=== PATIENT | male | born 1970 | race Two or more races ===

== ENCOUNTER 2020-03-09 13:43 | Emergency (ER) | payer MEDICAID ==
[~2020-03-09] VITALS: Ht 170.2 cm; Wt 77.6 kg
[2020-03-09 13:55] VITALS: BP 145/81
--- NOTE | 2020-03-09 13:55 | NUR ---
[email or web address], from a restaurant, lac on nose area s/p tripped and fall,-ko. has 5 cans of beer. vs checked,. awaiting md dasilva
--- NOTE | 2020-03-09 15:37 | NUR ---
Patient eloped from facility. ER MD notified.
== END 2020-03-09 15:37 | disposition left against medical advice (07) ==
LOC: ER 13:50
DX: S01.21XA Laceration without foreign body of nose, initial encounter (principal); W01.0XXA Fall on same level from slipping, tripping and stumbling without subsequent striking against object, initial encounter; Y93.89 Activity, other specified; Y92.511 Restaurant or cafe as the place of occurrence of the external cause; Y99.8 Other external cause status

== ENCOUNTER 2020-06-03 12:48 | Inpatient (IN) | payer MEDICAID ==
[~2020-06-03] VITALS: Ht 162.6 cm; Wt 59.4 kg
--- NOTE | 2020-06-03 15:25 | NUR ---
RN OPENING NOTES DIRECT ADMIT FROM [facility]. PT AWAKE, A/O X4. ON ROOM AIR SATING 99%. REPORTS PAIN AT LEFT SHOULDER 10/10. MULTIPLE BRUISES NOTED ON CHEST AND SHOULDERS. PICTURE TAKEN AND PLACED IN CHART. IV ACCESS AT RAC #20 INTACT, PATENT AND FLUSHED. BELONGING LIST SIGNED. REFUSED TO CHANGE INTO HOSPITAL GOWN. SAFETY MEASURES IN PLACE. CALL LIGHT WITHIN REACH. BED LOCKED AND ATLOWEST POSITION. BED ALARM ON. WILL CONTINUE TO MONITOR.
[2020-06-03 16:00] VITALS: BP 120/72
[2020-06-03] MEDS ORDERED: MAG HYDROX/AL HYDROX/SIMETH 30 ML UDC PO PRN (16:30)
[2020-06-03] MEDS ORDERED: Z GUARD REMEDY 2 OZ OINT TP PRN (16:30)
[2020-06-03] MEDS ORDERED: MAGNESIUM HYDROXIDE 30 ML UDC PO PRN (16:30)
[2020-06-03] MEDS ORDERED: ONDANSETRON HCL/PF 4 MG/2 ML VIAL IVP PRN (16:30)
[2020-06-03] MEDS ORDERED: MVI ADULT 10ML VIAL = 1AMP 10 ML in IV NS 0.9% 1,000 ML IV ONE (16:30)
[2020-06-03] MEDS ORDERED: IV NS 0.9% 1,000 ML IV SCH (16:30)
[2020-06-03] MEDS ORDERED: MVI-12 10ML IV ONE (16:30)
[2020-06-03] MEDS: IV NS 0.9% 1,000 ML IV PRN (16:35)
[2020-06-03 16:50] LABS: BASOPHILS # (AUTO) 0.1 /CMM (0.0-0.2); BASOPHILS % (AUTO) 1.5 % (0.0-2.0); EOSINOPHILS % (AUTO) 0.1 % (0.0-6.0); HEMATOCRIT 27 % (39-51); HEMOGLOBIN 9.2 g/dL (13.5-17.5); MEAN CORPUSCULAR HGB CONC 34 g/dl (31.0-36.0); MEAN CORPUSCULAR VOLUME 94 fL (80-96); MONOCYTES % (AUTO) 13.6 % (2.0-12.0); NEUTROPHILS % (AUTO) 70.8 % (43.0-81.0); PLATELET COUNT (AUTO) 56 /CMM (150-450); RED BLOOD CELL COUNT(AUTO) 2.91 MIL/uL (4.5-6.0)
[2020-06-03] MEDS: Folic acid 1 MG in IV D5W 50 ML IV SCH (16:57)
[2020-06-03] MEDS: MORPHINE SULFATE INJ 2 MG/ML DISP.SYRIN IV PRN ×2 (17:07→20:20)
[2020-06-03 17:11] LABS: CALCIUM, SERUM 8.4 mg/dL (8.5-10.1); CREATININE 0.5 mg/dL (0.6-1.3); POTASSIUM 3.7 mmol/L (3.5-5.1)
[2020-06-03 17:12] LABS: MAGNESIUM 2.1 mg/dL (1.8-2.4); PHOSPHORUS 2.3 mg/dL (2.5-4.9)
[2020-06-03 17:32] LABS: LYMPHOCYTES % (MANUAL) 12 % (16-48); MONOCYTES % (MANUAL) 16 % (0-11.0); NEUTROPHILS % (MANUAL) 72 (42-76)
[2020-06-03] MEDS: Thiamine 100 MG in IV D5W 50 ML IV SCH (17:45)
--- NOTE | 2020-06-03 19:29 | NUR ---
RN CLOSING NOTES PT RESTING IN BED. ALL NEEDS ATTENDED. DUE MEDS GIVEN. SAFETY MEASURES STILL IN PLACE. WILL ENDORSE TO NIGHT NURSE FOR CRYSTAL.
[2020-06-03 20:00] VITALS: BP 114/76
[2020-06-03] MEDS: LORAZEPAM INJ 2 MG/ML VIAL IV PRN (20:21)
[2020-06-03] MEDS: HYDROCODONE/APAP 5/325MG TABLET PO PRN (21:34)
[2020-06-03] MEDS: CHLORDIAZEPOXIDE HCL 25 MG CAPSULE PO SCH (22:53)
[2020-06-03] MEDS: ZOLPIDEM TARTRATE 5 MG TABLET PO PRN (23:12)
[2020-06-04] VITALS: BP 130/52
[2020-06-04] MEDS: LORAZEPAM INJ 2 MG/ML VIAL IV PRN ×5 (02:44→19:57)
[2020-06-04] MEDS: ACETAMINOPHEN 325 MG TABLET PO PRN ×2 (02:45→19:58)
[2020-06-04 04:00] VITALS: BP 126/70
[2020-06-04] MEDS: CHLORDIAZEPOXIDE HCL 25 MG CAPSULE PO SCH ×3 (05:43→20:04)
[2020-06-04] MEDS: IV NS 0.9% 1,000 ML IV PRN ×2 (05:48→21:13)
[2020-06-04] MEDS: MORPHINE SULFATE INJ 2 MG/ML DISP.SYRIN IV PRN ×3 (06:16→19:57)
[2020-06-04 06:55] LABS: BASOPHILS # (AUTO) 0.1 /CMM (0.0-0.2); BASOPHILS % (AUTO) 0.7 % (0.0-2.0); EOSINOPHILS % (AUTO) 1.3 % (0.0-6.0); HEMATOCRIT 25 % (39-51); HEMOGLOBIN 8.7 g/dL (13.5-17.5); LYMPHOCYTES # (AUTO) 1.3 /CMM (0.8-4.8); LYMPHOCYTES % (AUTO) 15.7 % (20.0-44.0); MEAN CORPUSCULAR HGB CONC 34 g/dl (31.0-36.0); MEAN CORPUSCULAR VOLUME 94 fL (80-96); MONOCYTES # (AUTO) 1.2 /CMM (0.1-1.30); MONOCYTES % (AUTO) 14.4 % (2.0-12.0); NEUTROPHILS # (AUTO) 5.6 /CMM (1.8-8.9); NEUTROPHILS % (AUTO) 67.9 % (43.0-81.0); PLATELET COUNT (AUTO) 56 /CMM (150-450); RED BLOOD CELL COUNT(AUTO) 2.71 MIL/uL (4.5-6.0); WHITE BLOOD COUNT (AUTO) 8.2 K/uL (4.3-11.0)
[2020-06-04 07:06] LABS: CALCIUM, SERUM 8.3 mg/dL (8.5-10.1); CREATININE 0.4 mg/dL (0.6-1.3); POTASSIUM 3.3 mmol/L (3.5-5.1)
--- NOTE | 2020-06-04 07:30 | NUR ---
RN OPENING NOTES PATIENT PRESENT IN BED, AGITATED, ON ROOM, AIR, SPO2 IS 98%, NO SOB NOTED R AC IV LINE NOTED, INTACT AND FLUSHED,, SLING ON LEFT HAND NOTED, A/OX4, NSR ON TELE-MONITOR, SAFETY MEASURES IN PLACE, BED ALARM ON, WILL CONT TO MONITOR
[2020-06-04] MEDS ORDERED: MVI ADULT 10ML VIAL = 1AMP 10 ML in IV NS 0.9% 1,000 ML IV PRN (09:00)
--- NOTE | 2020-06-04 09:00 | NUR ---
Agitated, saying that she want go home, saying his daughter (17yo) at home alone, then said he has at home too, tried to contact by [facility] number listed on face shift, incorrect number provided. Hospitalist notifyed, availing for her visit, meanwhile will provide with ordered medication amd monitor closely
[2020-06-04] MEDS ORDERED: POTASSIUM CHLORIDE 20 MEQ TAB.PRT.SR PO SCH (09:30)
[2020-06-04 11:30] VITALS: BP 120/43
[2020-06-04 12:00] VITALS: BP 137/70
--- NOTE | 2020-06-04 13:00 | NUR ---
PATIENT SHAKING AND UNABLE TO WALK STRAIGHT ,GUIDED BACK TO BED,EXPLAINED THAT HE ALMOST FALL AND NOT SAFE FOR NOW TO AMBULATE BY HIMSELF.WILL CONTINUE TO MONITOR.FALL RISK PRECAUTION OBSERVED.
--- NOTE | 2020-06-04 13:41 | NUR ---
SS NOTE: SS consult requested. SW spoke to ELY Antonio and was told that the patient is currently confused and withdrawing from alcohol use. ARNULFO will follow up with the patient tomorrow for a consult.
--- NOTE | 2020-06-04 13:52 | NUR ---
PATIENT SHAKING AND RESTLESS,TRYING TO GET OUT OF BED ,UNSTEADY GAIT,AND HAD DOSE ALREADY OF PRN MD SHAHNAZ MADE AWARE AND ORDERED SITTER,NURSING SUP MADE AWARE.
--- NOTE | 2020-06-04 13:54 | NUR ---
CLOSE TO STATION ,ALTERNATE WATCH BY RN/HERD TESTER /CHRGE NURSE,WILL CONTINUE TO MONITOR.
--- NOTE | 2020-06-04 14:16 | NUR ---
SITTER AT BEDSIDE.
[2020-06-04 16:00] VITALS: BP 140/63
[2020-06-04] MEDS: Folic acid 1 MG in IV D5W 50 ML IV SCH (16:48)
[2020-06-04] MEDS: Thiamine 100 MG in IV D5W 50 ML IV SCH (18:03)
[2020-06-04 20:00] VITALS: BP 136/88
[2020-06-04] MEDS: ZOLPIDEM TARTRATE 5 MG TABLET PO PRN (21:17)
[2020-06-04] MEDS: HYDROCODONE/APAP 5/325MG TABLET PO PRN (21:17)
[2020-06-05] VITALS: BP 129/72
[2020-06-05 04:00] VITALS: BP 127/76
[2020-06-05] MEDS: CHLORDIAZEPOXIDE HCL 25 MG CAPSULE PO SCH ×3 (05:10→20:22)
[2020-06-05 06:11] LABS: CALCIUM, SERUM 8.5 mg/dL (8.5-10.1); CREATININE 0.5 mg/dL (0.6-1.3)
[2020-06-05] MEDS: MORPHINE SULFATE INJ 2 MG/ML DISP.SYRIN IV PRN ×3 (06:27→20:18)
[2020-06-05] MEDS: LORAZEPAM INJ 2 MG/ML VIAL IV PRN ×3 (06:28→16:08)
[2020-06-05] MEDS: IV NS 0.9% 1,000 ML IV PRN ×2 (06:51→20:27)
--- NOTE | 2020-06-05 07:30 | NUR ---
RN OPENING NOTE PT ASLEEP IN BED, AROUSABLE TO NAME, A/Ox4, BREATHING ON RA SP2 98%, NO SIGNS OF RESP DISTRESS OR SOB. PT HAS VISIBLE TREMORS, WILL ADMIN ATIVAN ACCORDINGLY. PT STATES 8/10 PAIN IN LEFT SHOULDER/ARM THAT IS FRACTURED, SLING IS ON, WILL ADMIN PAIN MEDS ACCORDINGLY. PT HAS MULTIPLE BRUISES OVER HIS BODY FROM FALL. PT CAN STAND BUT IS FULL ASSIST AND VERY WEAK BLE. PT HAS RAC #20 INFUSING NS @ 100ML/HR, LINE FLUSHED, PATENT WITH NO SIGNS OF INFECTION OR INFILTRATION. PHOTOCOPIER TECHNICIAN SAM NOTIFIED OF POTASSIUM OF 3.0 AND PLT OF 56. ALL PT SAFETY PRECAUTIONS IN PLACE WILL CONT TO MONITOR
[2020-06-05 08:00] VITALS: BP 130/77
[2020-06-05] MEDS: FOLIC ACID 1 MG TABLET PO SCH (08:59)
[2020-06-05] MEDS: THIAMINE HCL 100 MG TABLET PO SCH (08:59)
[2020-06-05] MEDS ORDERED: POTASSIUM CHLORIDE 20 MEQ TAB.PRT.SR PO ONE (09:00)
[2020-06-05] MEDS: MULTIVITAMINS,THERAGRAN 1 UDTAB TABLET PO SCH (10:23)
[2020-06-05 12:00] VITALS: BP 134/80
--- NOTE | 2020-06-05 13:30 | NUR ---
RN NOTE PT 100.3 LOW GRADE FEVER. TYLENOL 650MG AND COOLING MEASURES GIVEN. WILL REASSESS
--- NOTE | 2020-06-05 15:20 | NUR ---
Broadcast Checker Consult: Broadcast Checker consult was requested due to alcohol intoxication and pt wanting to leave AMA. Pt is a 49 year old male who was admitted to [facility] on 06/03/20 due to fall resulting in humeral fracture while he was intoxicated. Upon face to face evaluation, pt appears to be alert and oriented x4 (time, place, self and situation). 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 Pts mood appears to be euthymic and pt presents with an anxious affect. Pt denies suicidal and homicidal ideation as well as auditory and visual hallucinations. Pt states that he has been eating and sleeping appropriately. Pt also states that he is ambulatory and has been receiving physical therapy. Pt states that he would like to be discharged to his home as soon as possible. Plan: ARNULFO provided the pt with substance abuse referrals and placed a copy in the chart. Pt will return home at the time of discharge.
[2020-06-05 16:00] VITALS: BP 123/71
--- NOTE | 2020-06-05 19:00 | NUR ---
RN CLOSING NOTE NO CHANGES TO PT STATUS. WHILE PT IS A/Ox3, CONSTANT TEACHING REINFORCEMENT NEEDED THROUGHOUT SHIFT REGARDING PT CARE PLAN AND WHAT THE PROVIDER WANTS TO SEE PRIOR TO DISCHARGE. PT STATED MANY TIMES HE WANTED TO LEAVE AMA, AND EVERY TIME I EXPLAINED TO HIM WHY THAT WAS NOT A GOOD IDEA. PT UNABLE TO STAND OR WALK UNDER OWN POWER, AND PT STILL GOING THROUGH WITHDRAWAL SYMPTOMS. ALL PT SAFETY PRECUATIONS IN PLACE. WILL ENDORSE CRYSTAL TO ONCOMING RN
[2020-06-05 20:00] VITALS: BP 132/75
--- NOTE | 2020-06-05 20:00 | NUR ---
RN OPENING NOTES PATIENT IN BED, A/OX4,AGITATED ,NSR ON TELE-MONITOR TRYING TO GET OUT OF BED WANTED TO GO HOME , EXPLAIN TO HIM R/B OF GETTING OUT OF BED VERBALIZED UNDERSTANDING PTS ON ON ROOM, AIR, SPO2 IS 98%, C/O OF PAIN 9/10 GENERALIZED PAIN MORPHINE GIVEN ORDERED , NO SOB NO DISTRESS NOTED, R AC IV LINE NOTED, INTACT AND PATENT DUE MEDS GIVEN ORDERED, SLING ON LEFT HAND NOTED, SAFETY MEASURES IN PLACE, BED ALARM ON, WILL CONT TO MONITOR PTS.
[2020-06-06] VITALS: BP 104/72
[2020-06-06] MEDS: LORAZEPAM INJ 2 MG/ML VIAL IV PRN ×5 (00:14→21:18)
[2020-06-06] MEDS: ACETAMINOPHEN 325 MG TABLET PO PRN (02:58)
[2020-06-06 04:00] VITALS: BP 126/72
[2020-06-06] MEDS: CHLORDIAZEPOXIDE HCL 25 MG CAPSULE PO SCH ×3 (05:22→22:23)
[2020-06-06] MEDS: IV NS 0.9% 1,000 ML IV PRN ×2 (06:14→18:36)
[2020-06-06 06:16] LABS: BASOPHILS # (AUTO) 0.1 /CMM (0.0-0.2); BASOPHILS % (AUTO) 0.7 % (0.0-2.0); EOSINOPHILS % (AUTO) 2.4 % (0.0-6.0); HEMATOCRIT 26 % (39-51); HEMOGLOBIN 8.8 g/dL (13.5-17.5); LYMPHOCYTES # (AUTO) 2.3 /CMM (0.8-4.8); LYMPHOCYTES % (AUTO) 22.5 % (20.0-44.0); MEAN CORPUSCULAR HGB CONC 34 g/dl (31.0-36.0); MEAN CORPUSCULAR VOLUME 95 fL (80-96); MONOCYTES # (AUTO) 1.8 /CMM (0.1-1.30); NEUTROPHILS % (AUTO) 57.4 % (43.0-81.0); PLATELET COUNT (AUTO) 102 /CMM (150-450); WHITE BLOOD COUNT (AUTO) 10.4 K/uL (4.3-11.0)
[2020-06-06 06:21] LABS: CALCIUM, SERUM 8.6 mg/dL (8.5-10.1); CREATININE 0.5 mg/dL (0.6-1.3); MAGNESIUM 1.7 mg/dL (1.8-2.4); PHOSPHORUS 2.5 mg/dL (2.5-4.9); POTASSIUM 3.3 mmol/L (3.5-5.1)
--- NOTE | 2020-06-06 06:37 | NUR ---
HUB CUTTER APPRENTICE NOTES PTS IN BED ,PERIOD OF AGITATION . WANTED TO GO HOME ATIVAN GIVEN ORDERED. FREQUENT VISUAL CHECK DONE WITH PERIOD OF CONFUSSION REMAINS WITH IV FLUIDS AT 100CC/HR TOLERATING WELL NO SOB NO DISTRESS NOTED ,WILL ENDORSE TO RN DAY SHIFT FOR CONTINUITY OF CARE.
--- NOTE | 2020-06-06 07:46 | NUR ---
SUPERINTENDENT LAUNDRY NOTE PATIENT IN BED, ALERT ORIENTED , ON TELE MONITOR, RT AC HI INTACT AND FLUSHED WELL , ON IVF ORDERED,SITTER AT BEDSIDE DUE TO PATIENT AT RISK FOR FALLS , LT ARM AND SHOULDER SWOLLEN , BED IN LOWEST ABS LOCKED POSITION , ON RA,NO SOB,WILL CONT TO MONITOR
[2020-06-06 08:00] VITALS: BP 125/72
[2020-06-06 08:32] LABS: EOSINOPHILS % (MANUAL) 1 % (0-4); LYMPHOCYTES % (MANUAL) 22 % (16-48); MONOCYTES % (MANUAL) 18 % (0-11.0); NEUTROPHILS % (MANUAL) 59 (42-76)
[2020-06-06] MEDS: MULTIVITAMINS,THERAGRAN 1 UDTAB TABLET PO SCH (08:34)
[2020-06-06] MEDS: FOLIC ACID 1 MG TABLET PO SCH (08:34)
[2020-06-06] MEDS: THIAMINE HCL 100 MG TABLET PO SCH (08:34)
--- NOTE | 2020-06-06 09:00 | NUR ---
MS RN NOTE ATIVAN IVP GIVEN FOR RESTLESS AND SHAKING BP 125/72 SATURATION 97%
[2020-06-06] MEDS ORDERED: POTASSIUM CHLORIDE 20 MEQ TAB.PRT.SR PO SCH (09:30)
[2020-06-06] MEDS: Magnesium 1GM/D5W 100ML PREMIX 100 ML IV SCH ×2 (10:35→11:44)
--- NOTE | 2020-06-06 10:37 | NUR ---
MS RN NOTE AMBULATED WELL WITH PT USING A WALKER
[2020-06-06] MEDS: MORPHINE SULFATE INJ 2 MG/ML DISP.SYRIN IV PRN (11:21)
--- NOTE | 2020-06-06 11:47 | NUR ---
CANDY WAFFLE ASSEMBLER NOTE SEEN BY SAM GRAVES CASH REGISTER MECHANIC NOTIFUED THAT PATENT WAS EARLIER AGITATED AND RESTLESS AND KATE AND WAS COMBATIVE WITH NURSING STAFF ,STATED WILL ORDER PSYCH EVAL
--- NOTE | 2020-06-06 11:55 | NUR ---
MS RN NOTE MORPHINE IVP GIVEN 2 MG ORDERED SATURATION 98% BP 101/78
--- NOTE | 2020-06-06 12:30 | NUR ---
PROCESSING INSPECTOR NOTE CALLED TO [facility] FOR PHYCH EVAL
--- NOTE | 2020-06-06 14:00 | NUR ---
MS RN NOTE SITTER AT BEDSIDE ,STILL VERY RESTLESS AND NOT COOPERATIVE , ALL NEEDS ATTENDED CONT ON IVF ORDERED, WILL CONT TO MONITOR , ASSISTED TO BR , ABLE TO URINATE WELL
[2020-06-06 16:00] VITALS: BP 133/72
--- NOTE | 2020-06-06 18:32 | NUR ---
MS RN NOTE CONT ON IVF ATE DINER ,ALL NEEDS ATTENDED, NO SOB NOTE ,SITTER AT BEDSIDE ,PATIENT AT RISK FOR FALL TRYING TO GET OUT OFF BED , PER [facility] NURSE PSYCHIATRIST WILL SEE HIM TOMORROW ,BED IN LOWEST AND LOCKED POSITION , SAFETY MEASURE OBSERVED
[2020-06-06 20:00] VITALS: BP 126/65
--- NOTE | 2020-06-06 20:21 | NUR ---
MILY/RN DURING INITIAL SHIFT ROUNDING, PATIENT WAS AWAKE, ALERT, RESTLESS, CONFUSED, NO SIGNS OF DISTRESS NOTED, SITTER AT BEDSIDE FOR SAFETY, WILL MONITOR.
--- NOTE | 2020-06-06 21:26 | NUR ---
MILY/RN PATIENT IS VERY AGITATED AT THIS TIME, ATIVAN 2 MG IVP WAS GIVEN ORDERED, WILL MONITOR.
--- NOTE | 2020-06-06 22:06 | NUR ---
MILY/RN PATIENT IS STILL RESTLESS, NO DISTRESS NOTED, SITTER AT BEDSIDE. WILL CONTINUE TO MONITOR.
[2020-06-07 04:00] VITALS: BP 141/94
[2020-06-07] MEDS: IV NS 0.9% 1,000 ML IV PRN ×2 (05:48→18:19)
[2020-06-07 06:29] LABS: BASOPHILS # (AUTO) 0.1 /CMM (0.0-0.2); BASOPHILS % (AUTO) 0.6 % (0.0-2.0); EOSINOPHILS % (AUTO) 0.5 % (0.0-6.0); HEMATOCRIT 26 % (39-51); HEMOGLOBIN 8.8 g/dL (13.5-17.5); LYMPHOCYTES # (AUTO) 1.2 /CMM (0.8-4.8); LYMPHOCYTES % (AUTO) 13.4 % (20.0-44.0); MEAN CORPUSCULAR HGB CONC 34 g/dl (31.0-36.0); MEAN CORPUSCULAR VOLUME 96 fL (80-96); MONOCYTES # (AUTO) 1.9 /CMM (0.1-1.30); MONOCYTES % (AUTO) 20.8 % (2.0-12.0); NEUTROPHILS % (AUTO) 64.7 % (43.0-81.0); PLATELET COUNT (AUTO) 147 /CMM (150-450); RED BLOOD CELL COUNT(AUTO) 2.69 MIL/uL (4.5-6.0); WHITE BLOOD COUNT (AUTO) 9.2 K/uL (4.3-11.0)
[2020-06-07] MEDS: CHLORDIAZEPOXIDE HCL 25 MG CAPSULE PO SCH ×3 (06:38→21:11)
[2020-06-07 06:40] LABS: CALCIUM, SERUM 8.6 mg/dL (8.5-10.1); CREATININE 0.5 mg/dL (0.6-1.3); MAGNESIUM 1.9 mg/dL (1.8-2.4); PHOSPHORUS 3.2 mg/dL (2.5-4.9)
--- NOTE | 2020-06-07 06:45 | NUR ---
MILY/RN ABLE TO GIVE LIBRIUM, PATIENT IS COMFORTABLE, NO SIGNS OF DISTRESS NOTED, ALL NEEDS ATTENDED AT THIS TIME, WILL CONTINUE TO MONITOR.
[2020-06-07 07:38] LABS: EOSINOPHILS % (MANUAL) 2 % (0-4); LYMPHOCYTES % (MANUAL) 12 % (16-48); MONOCYTES % (MANUAL) 23 % (0-11.0); NEUTROPHILS % (MANUAL) 63 (42-76)
--- NOTE | 2020-06-07 07:45 | NUR ---
HOT DIP PLATING SUPERVISOR OPENING NOTES Patient is alert and in bed with a sitter at the bedside. No attempts of getting up noted. Patient noted with right AC 20 gauze at 100 cc/hour. No c/o pain or discomfort. Patient is on room air saturating 97%. Bed is in lowest and locked position. Call light with in reach. Will continue to monitor.
[2020-06-07 08:00] VITALS: BP 122/77
[2020-06-07] MEDS: THIAMINE HCL 100 MG TABLET PO SCH (09:15)
[2020-06-07] MEDS: FOLIC ACID 1 MG TABLET PO SCH (09:15)
[2020-06-07] MEDS: MULTIVITAMINS,THERAGRAN 1 UDTAB TABLET PO SCH (09:15)
[2020-06-07] MEDS: POTASSIUM CHLORIDE 20 MEQ TAB.PRT.SR PO SCH ×3 (10:35→13:01)
[2020-06-07] MEDS: AZITHROMYCIN 250 MG TABLET PO SCH (11:55)
[2020-06-07 12:00] VITALS: BP 132/80
--- NOTE | 2020-06-07 13:00 | NUR ---
Patient seen by DR Peguero and received order for urine collection. Urine collected and lab called.
[2020-06-07] MEDS: CEFTRIAXONE 1 G in IV D5W 50 ML IV SCH (13:01)
[2020-06-07 13:17] LABS: BILIRUBIN,URINE SMALL (NEGATIVE); COLOR,URINE YELLOW (YELLOW); LEUKOCYTE ESTERASE ,URINE NEGATIVE (NEGATIVE); NITRITE, URINE NEGATIVE (NEGATIVE); PROTEIN,URINE NEGATIVE (NEGATIVE); UGLUCOSE NEGATIVE (NEGATIVE)
[2020-06-07 15:34] LABS: BACTERIA,URINE RARE /HPF (None Seen); MUCUS,URINE Many /LPF (None Seen); RBC,URINE 0-2 /HPF (0-2); SQUAMOUS EPITHELIAL CELL,UR 0-2 /HPF (None Seen); WBC,URINE 0-2 /HPF (0-3)
[2020-06-07 16:00] VITALS: BP 125/78
--- NOTE | 2020-06-07 17:00 | NUR ---
Patient had tele visit with psychiatrist Dr. Chirinos via [employer]. New orders received from . In house SHELTER MONITOR made aware.
--- NOTE | 2020-06-07 19:05 | NUR ---
BARREL MARKER CLOSING NOTES Patient is alert and in bed with a sitter at the bedside. No attempts of getting up noted. Patient noted with right AC 20 gauze at 125 cc/hour. No c/o pain or discomfort. Patient is on room air saturating 98%. Bed is in lowest and locked position. Will endorse to next shift for CRYSTAL.
[2020-06-07 20:00] VITALS: BP 122/76
[2020-06-07] MEDS: OLANZAPINE ZYDIS 5 MG TAB.RAPDIS PO SCH (21:11)
[2020-06-08 04:00] VITALS: BP 122/77
[2020-06-08] MEDS: IV NS 0.9% 1,000 ML IV PRN ×2 (05:06→13:51)
[2020-06-08] MEDS: CHLORDIAZEPOXIDE HCL 25 MG CAPSULE PO SCH ×3 (05:07→20:52)
[2020-06-08 05:44] LABS: BASOPHILS # (AUTO) 0.1 /CMM (0.0-0.2); BASOPHILS % (AUTO) 0.7 % (0.0-2.0); EOSINOPHILS % (AUTO) 3.5 % (0.0-6.0); HEMATOCRIT 29 % (39-51); HEMOGLOBIN 9.7 g/dL (13.5-17.5); LYMPHOCYTES # (AUTO) 1.3 /CMM (0.8-4.8); LYMPHOCYTES % (AUTO) 16.6 % (20.0-44.0); MEAN CORPUSCULAR HGB CONC 33 g/dl (31.0-36.0); MEAN CORPUSCULAR VOLUME 96 fL (80-96); MONOCYTES # (AUTO) 1.7 /CMM (0.1-1.30); NEUTROPHILS # (AUTO) 4.3 /CMM (1.8-8.9); NEUTROPHILS % (AUTO) 56.2 % (43.0-81.0); PLATELET COUNT (AUTO) 198 /CMM (150-450); RED BLOOD CELL COUNT(AUTO) 3.06 MIL/uL (4.5-6.0); WHITE BLOOD COUNT (AUTO) 7.6 K/uL (4.3-11.0)
[2020-06-08 06:49] LABS: CALCIUM, SERUM 8.7 mg/dL (8.5-10.1); CREATININE 0.5 mg/dL (0.6-1.3); POTASSIUM 3.2 mmol/L (3.5-5.1)
[2020-06-08 06:50] LABS: MAGNESIUM 1.8 mg/dL (1.8-2.4)
[2020-06-08 07:30] LABS: EOSINOPHILS % (MANUAL) 4 % (0-4); LYMPHOCYTES % (MANUAL) 19 % (16-48); MONOCYTES % (MANUAL) 16 % (0-11.0); NEUTROPHILS % (MANUAL) 61 (42-76)
--- NOTE | 2020-06-08 07:45 | NUR ---
SUPERVISOR WINTER OPENING NOTES Patient is alert and in bed with a sitter at the bedside. No attempts of getting up noted. Patient noted with right AC 20 gauze at 125 cc/hour. No c/o pain or discomfort. Patient is on room air saturating 99%. Bed is in lowest and locked position. Call light with in reach. Will continue to monitor.
[2020-06-08] MEDS: THIAMINE HCL 100 MG TABLET PO SCH (08:00)
[2020-06-08] MEDS: FOLIC ACID 1 MG TABLET PO SCH (08:00)
[2020-06-08] MEDS: MULTIVITAMINS,THERAGRAN 1 UDTAB TABLET PO SCH (08:00)
[2020-06-08] MEDS: OLANZAPINE ZYDIS 5 MG TAB.RAPDIS PO SCH ×2 (08:01→21:02)
[2020-06-08] MEDS ORDERED: POTASSIUM CHLORIDE 20 MEQ TAB.PRT.SR PO ONE (09:30)
[2020-06-08 12:00] VITALS: BP 128/68
[2020-06-08] MEDS: AZITHROMYCIN 250 MG TABLET PO SCH (13:28)
[2020-06-08] MEDS: CEFTRIAXONE 1 G in IV D5W 50 ML IV SCH (13:28)
--- NOTE | 2020-06-08 15:00 | NUR ---
NOTED WITH INFILTRATION OF IV SITE TO RIGHT UPPER ARM, IV DISCONTINUED AND PLACED A NEW IV LINE TO RIGHT HAND 24 GAUZE. SITE PATENT AND INTACT.
--- NOTE | 2020-06-08 18:48 | NUR ---
PRINCIPAL GIFTS OFFICER CLOSING NOTES Patient is alert and in bed with a sitter at the bedside. No attempts of getting up noted. Patient noted with right AC 20 gauze at 125 cc/hour. No c/o pain or discomfort. Patient is on room air saturating 96%. Bed is in lowest and locked position. Will endorse to next shift for CRYSTAL.
[2020-06-08 20:00] VITALS: BP 109/64
[2020-06-08 21:10] VITALS: BP 109/64
[2020-06-08] MEDS: HYDROCODONE/APAP 5/325MG TABLET PO PRN (21:16)
[2020-06-09] MEDS: IV NS 0.9% 1,000 ML IV PRN (03:31)
[2020-06-09 04:00] VITALS: BP 130/74
[2020-06-09] MEDS: CHLORDIAZEPOXIDE HCL 25 MG CAPSULE PO SCH ×2 (05:10→12:10)
[2020-06-09 06:39] LABS: BASOPHILS # (AUTO) 0.1 /CMM (0.0-0.2); BASOPHILS % (AUTO) 0.9 % (0.0-2.0); HEMATOCRIT 27 % (39-51); LYMPHOCYTES % (AUTO) 26.7 % (20.0-44.0); MEAN CORPUSCULAR HGB CONC 33 g/dl (31.0-36.0); MEAN CORPUSCULAR VOLUME 95 fL (80-96); MONOCYTES # (AUTO) 1.8 /CMM (0.1-1.30); MONOCYTES % (AUTO) 24.3 % (2.0-12.0); NEUTROPHILS # (AUTO) 3.1 /CMM (1.8-8.9); NEUTROPHILS % (AUTO) 41.1 % (43.0-81.0); PLATELET COUNT (AUTO) 267 /CMM (150-450); RED BLOOD CELL COUNT(AUTO) 2.84 MIL/uL (4.5-6.0); WHITE BLOOD COUNT (AUTO) 7.6 K/uL (4.3-11.0)
--- NOTE | 2020-06-09 06:39 | NUR ---
MS RN NOTES AWAKE & RESPONSIVE. NOT IN ANY DISTRESS. NO SOB NOTED. DENIES ANY PAIN OR DISCOMFORT AT THIS TIME. MONITORED ACCORDINGLY. CALL LIGHT WITHIN REACH. BED IN LOWEST POSITION. SR UP X 3 WITH BED ALARM ON FOR SAFETY. WILL ENDORSE TO NEXT SHIFT.
[2020-06-09 07:09] LABS: CALCIUM, SERUM 8.8 mg/dL (8.5-10.1); CREATININE 0.5 mg/dL (0.6-1.3); MAGNESIUM 1.7 mg/dL (1.8-2.4); POTASSIUM 3.6 mmol/L (3.5-5.1)
--- NOTE | 2020-06-09 07:30 | NUR ---
MS RN AM NOTE RECEIVED PATIENT IN BED, ASLEEP, RESPONDS RIGHT AWAY TO NAME AN TOUCH, AOX1-2, ON ROOM AIR, NO S/SX OF ACUTE DISTRESS AT THIS TIME. NO SOB NOTED. PATIENT'S BREATHING IS EVEN AND UNLABORED. SATURATION AT 100% ON ROOM AIR, RT AC G 22 IV SITE FLUSHES WELL, SITE CLEAR, IVF ONGOING, AMBULATORY, REGULAR DIET, SEIZURE PRECAUTIONS MAINTAINED. SAFETY MEASURES IMPLEMENTED. PATIENT BED ALARM IS ON. HEAD OF BED ELEVATED. BED IS LOCKED, IN LOWEST POSITION AND SIDE RAILS UP. CALL LIGHT WITHIN REACH OF THE PATIENT. POC DISCUSSED, VERBALIZED UNDERSTANDING. WILL CONTINUE TO MONITOR.
[2020-06-09 08:00] VITALS: BP 111/77
[2020-06-09] MEDS: THIAMINE HCL 100 MG TABLET PO SCH (08:29)
[2020-06-09] MEDS: FOLIC ACID 1 MG TABLET PO SCH (08:29)
[2020-06-09] MEDS: MULTIVITAMINS,THERAGRAN 1 UDTAB TABLET PO SCH (08:29)
[2020-06-09] MEDS: OLANZAPINE ZYDIS 5 MG TAB.RAPDIS PO SCH (08:30)
--- NOTE | 2020-06-09 09:30 | NUR ---
RN NOTES DUE MEDS GIVEN
[2020-06-09] MEDS ORDERED: Folic Acid PO (10:21)
[2020-06-09] MEDS ORDERED: AZIT250T PO (10:21)
[2020-06-09] MEDS ORDERED: OLAN5TAB6 PO (10:21)
[2020-06-09] MEDS ORDERED: Thiamine HCL PO (10:21)
[2020-06-09] MEDS ORDERED: MULT-24 PO (10:21)
[2020-06-09] MEDS: Magnesium 1GM/D5W 100ML PREMIX 100 ML IV SCH ×2 (11:11→12:10)
[2020-06-09 11:48] LABS: EOSINOPHILS % (MANUAL) 4 % (0-4); LYMPHOCYTES % (MANUAL) 27 % (16-48); MONOCYTES % (MANUAL) 18 % (0-11.0); NEUTROPHILS % (MANUAL) 51 (42-76)
[2020-06-09] MEDS: CEFTRIAXONE 1 G in IV D5W 50 ML IV SCH (12:10)
[2020-06-09] MEDS: AZITHROMYCIN 250 MG TABLET PO SCH (12:10)
--- NOTE | 2020-06-09 13:45 | NUR ---
RN NOTES PATIENT STILL IN HIS BEDROOM. WAS REASSESSED AND HAS A VERY UNSTEADY GAIT AND COULD BARELY WALK. NEEDS 1 PERSON ASSIST TO GO TO BATHROOM. SAM GRUBBS NOTIFIED, RN MEDIA AID MERLE NOTIFIED, YOLANDA JAMES MATERIALS INSPECTOR NOTIFIED.
[2020-06-09 16:00] VITALS: BP 117/76
--- NOTE | 2020-06-09 16:53 | NUR ---
RN NOTES WAS ABLE TO SPEAK TO [place] DAUGHTER VIA ELECTRIC BRAIN WAVE EQUIPMENT MECHANIC AT PHONE NUMBER [phone]. ACCORDING TO DAUGHTER HIS FATHER WAS MISSING FOR 6 DAYS ALREADY AND THEY DONT KNOW WHAT HAPPENED TO HIM. ALSO HER MOTHER'S PHONE WAS CUT OFF MAKING IT IMPOSSIBLE TO REACH HER. HOWEVER, PER DAUGHTER THEY WILL GLOBAL SUPPLY CHAIN VICE PRESIDENT HIS FATHER AT 1730.
--- NOTE | 2020-06-09 18:19 | NUR ---
HULL BUILDER NOTES PATIENT DISCHARGED TO HOME TODAY PER MD IN STABLE CONDITION. PROVIDED DC INSTRUCTIONS, HEALTH TEACHINGS AND MED RECON LIST. PATIENT TO FOLLOWUP WITH PCP IN 1-2 WEEKS AND WILL MAKE OWN APPOINTMENT. NEEDS TO GO TO [facility] FOR ORTHO. REFUSED TO TAKE PHOTOS OF SKIN ISSUES. IV ACCESS TO RIGHT AC, CATH TIP COMPLETE, NO BLEEDING, DRESSING IN PLACE. ALL BELONGINGS CHECKED AND RETURNED. ALL PAPERS SIGNED. ACCOMPANIED BY [employer] TO LOBBY VIA WHEELCHAIR. AND WILL GO HOME VIA PRIVATE CAR WITH AND DAUGHTER.
== END 2020-06-09 18:00 | disposition home health service (06) | DRG 775 ==
LOC: MEDSG1 15:06 → TELE1 16:02 → MEDSG1 06-06 10:07
PROVIDERS: ADMIT Registered Nurse; ATTEND Registered Nurse
DX: F10.239 Alcohol dependence with withdrawal, unspecified (principal); G92 Toxic encephalopathy; J69.0 Pneumonitis due to inhalation of food and vomit; S42.212A Unspecified displaced fracture of surgical neck of left humerus, initial encounter for closed fracture; W19.XXXA Unspecified fall, initial encounter; Y92.89 Other specified places as the place of occurrence of the external cause; E87.6 Hypokalemia; D61.818 Other pancytopenia; F29 Unspecified psychosis not due to a substance or known physiological condition; Y90.9 Presence of alcohol in blood, level not specified; F10.221 Alcohol dependence with intoxication delirium; S42.292A Other displaced fracture of upper end of left humerus, initial encounter for closed fracture
CPT/HCPCS: 36415; 80048-TC; 80061-TC; 81001; 82140-TC; 82550-TC; 83735-TC; 84100-TC; 85025-TC; 97112-TC; 97116-TC; 97530-TC; G0378; J0696; J2060; J2270; J3411; J3475; J3490; J7030; J7060

== ENCOUNTER 2024-03-13 02:23 | Inpatient (IN) | payer MEDICAID ==
[2024-03-13] VITALS (7 sets, daily range): BP systolic 118–130; BP diastolic 64–76; TEMP 98.1–99.1; O2SAT 92–99
[~2024-03-13 02:23] MED LIST: AZIT250T PO; Folic Acid PO; MULT-24 PO; OLAN5TAB6 PO; Thiamine HCL PO
[2024-03-13] MEDS ORDERED: MAGNESIUM HYDROXIDE 30 ML UDC PO PRN (03:00)
[2024-03-13] MEDS ORDERED: ONDANSETRON HCL/PF 4 MG/2 ML VIAL IVP PRN (03:00)
[2024-03-13] MEDS ORDERED: ACETAMINOPHEN 325 MG TABLET PO PRN (03:00)
[2024-03-13] MEDS ORDERED: MAG HYDROX/AL HYDROX/SIMETH 30 ML UDC PO PRN (03:00)
[2024-03-13] MEDS ORDERED: Z GUARD REMEDY 4 OZ OINT TP PRN (03:00)
[2024-03-13] MEDS: IV NS 0.9% 1,000 ML IV PRN (04:39)
[2024-03-13] MEDS: CHLORDIAZEPOXIDE HCL 25 MG CAPSULE PO SCH (06:12)
[2024-03-13 07:07] LABS: INR 1.07 (0.91-1.10); PROTHROMBIN TIME 11.3 SECS (9.2-11.1)
[2024-03-13 07:34] LABS: BASOPHILS # (AUTO) 0.1 K/uL (0.0-0.2); BASOPHILS % (AUTO) 1.3 % (0.0-2.0); EOSINOPHILS # (AUTO) 0.2 K/uL (0.0-0.7); EOSINOPHILS % (AUTO) 3.7 % (0.0-6.0); HEMATOCRIT 39 % (39-51); HEMOGLOBIN 12.5 g/dL (13.5-17.5); LYMPHOCYTES # (AUTO) 1.6 K/uL (0.8-4.8); LYMPHOCYTES % (AUTO) 28.9 % (20.0-44.0); MEAN CORPUSCULAR HEMOGLOBIN 27 PG (26.0-33.0); MEAN CORPUSCULAR HGB CONC 32 g/dl (31.0-36.0); MEAN CORPUSCULAR VOLUME 84 fL (80-96); NEUTROPHILS # (AUTO) 2.6 K/uL (1.8-8.9); NEUTROPHILS % (AUTO) 48.1 % (43.0-81.0); PLATELET COUNT (AUTO) 143 K/uL (150-450); RED BLOOD CELL COUNT(AUTO) 4.64 MIL/uL (4.5-6.0); RED CELL DISTRIBUTION WIDTH 18.1 % (11.5-15.0); WHITE BLOOD COUNT (AUTO) 5.4 K/uL (4.3-11.0)
[2024-03-13 07:43] LABS: ALBUMIN 3.5 g/dL (3.4-5.0); BILIRUBIN,DIRECT 0.3 mg/dL (0.0-0.2); BILIRUBIN,TOTAL 0.8 mg/dL (0.2-1.0); CALCIUM, SERUM 8.7 mg/dL (8.5-10.1); CREATININE 0.7 mg/dL (0.6-1.3); MAGNESIUM 2.2 mg/dL (1.8-2.4); PHOSPHORUS 4.3 mg/dL (2.5-4.9); POTASSIUM 3.9 mmol/L (3.5-5.1); TOTAL PROTEIN, SERUM 7.3 g/dL (6.4-8.2)
[2024-03-13] MEDS: PANTOPRAZOLE 40 MG TABLET.DR PO SCH (08:08)
[2024-03-13] MEDS: THIAMINE HCL 100 MG TABLET PO SCH (08:08)
[2024-03-13] MEDS: FOLIC ACID 1 MG TABLET PO SCH (08:08)
[2024-03-13] MEDS: MULTIVITAMINS,THERAGRAN 1 UDTAB TABLET PO SCH (08:08)
[2024-03-14 00:55] VITALS: BP 119/79; TEMP 98.8; O2SAT 96
[2024-03-14 07:01] LABS: BASOPHILS # (AUTO) 0.1 K/uL (0.0-0.2); EOSINOPHILS # (AUTO) 0.3 K/uL (0.0-0.7); EOSINOPHILS % (AUTO) 5.9 % (0.0-6.0); HEMATOCRIT 38 % (39-51); HEMOGLOBIN 12.5 g/dL (13.5-17.5); LYMPHOCYTES # (AUTO) 1.7 K/uL (0.8-4.8); MEAN CORPUSCULAR HEMOGLOBIN 28 PG (26.0-33.0); MEAN CORPUSCULAR HGB CONC 33 g/dl (31.0-36.0); MEAN CORPUSCULAR VOLUME 85 fL (80-96); MONOCYTES # (AUTO) 0.9 K/uL (0.1-1.30); MONOCYTES % (AUTO) 16.1 % (2.0-12.0); NEUTROPHILS # (AUTO) 2.8 K/uL (1.8-8.9); PLATELET COUNT (AUTO) 136 K/uL (150-450); RED BLOOD CELL COUNT(AUTO) 4.51 MIL/uL (4.5-6.0); RED CELL DISTRIBUTION WIDTH 17.9 % (11.5-15.0); WHITE BLOOD COUNT (AUTO) 5.9 K/uL (4.3-11.0)
[2024-03-14 07:07] LABS: CALCIUM, SERUM 8.4 mg/dL (8.5-10.1); CREATININE 0.5 mg/dL (0.6-1.3); MAGNESIUM 1.7 mg/dL (1.8-2.4); PHOSPHORUS 4.6 mg/dL (2.5-4.9); POTASSIUM 3.5 mmol/L (3.5-5.1)
[2024-03-14] MEDS ORDERED: Thiamine HCL PO (10:17)
[2024-03-14] MEDS ORDERED: MULT-24 PO (10:17)
[2024-03-14] MEDS ORDERED: Folic Acid PO (10:17)
== END 2024-03-14 18:10 | disposition home or self-care (01) | DRG 53 ==
LOC: TELE 02:23 → MED 03-14 10:39
DX: R56.9 Unspecified convulsions (principal); D69.6 Thrombocytopenia, unspecified; M62.82 Rhabdomyolysis; F10.139 Alcohol abuse with withdrawal, unspecified; Z59.00 Homelessness unspecified; E87.6 Hypokalemia; E83.42 Hypomagnesemia; Y90.9 Presence of alcohol in blood, level not specified
CPT/HCPCS: 36415; 80048-TC; 80076-TC; 82550-TC; 82553; 83690-TC; 83735-TC; 84100-TC; 85025-TC; 85610-TC; 97112-TC; 97116-TC; 97530-TC; 98960; A4223; G0378; J7030; J7060